=== PATIENT | male | born 1950 | race Caucasian/White ===

== ENCOUNTER 2016-11-29 13:05 | Day surgery (SDC) | payer OTHER, BC ==
[~2016-11-29] VITALS: Ht 162.6 cm; Wt 88.2 kg
[~2016-11-29 13:05] MED LIST: ASPIR-LOW81 MG PO; ASPIRIN81 M2 PO; ATENOLOL50 MG PO; BENICAR HCT 201 EACH PO; BENICAR HCT1 TABLET PO; CIPRO500 MG PO; CLINORIL200 MG; COQ-1030 MG PO; COUMADIN5 MG PO; DEPAKOTE ER250 MG PO; DEPAKOTE250 MG PO; Ecotrin PO; FLOMAX0.4 MG PO; Flomax PO; GLUCOPHAGE500 MG PO; INDOCIN50 MG PO; Indocin PO; LAMISIL250 MG PO; LIPITOR40 MG PO; Lovenox SC; NIFEDIPINE ER60 MG PO; OXYCODONE HCL5 MG PO; Percocet 5/325,Endoc PO; RESTASIS 01 DROP/0.4 BOTH EYES; Rocephin IV; TAMSULOSIN HCL0.4 MG; ZYVOX600 MG PO; Zocor PO; predniSONE PO
[2016-11-29] MEDS ORDERED: SPIRONOLACTONE25 MG PO (13:45)
[2016-11-29 14:49] VITALS: BP 116/71
[2016-11-29 22:57] VITALS: BP 127/74
[2016-11-30 04:07] VITALS: BP 129/70
[2016-11-30 08:21] VITALS: BP 129/72
[2016-11-30] MEDS ORDERED: LOVENOX40 MG/0.4 SC (08:28)
[2016-11-30] MEDS ORDERED: ENDOCET 5-3251 EACH PO (08:28)
[2016-11-30 11:30] VITALS: BP 130/72
== END 2016-11-30 11:55 | disposition home or self-care (01) ==
LOC: SDC 13:05 → 2SOUTH 19:47 → 3EAST 19:47 → 2SOUTH 19:47 → 3EAST 21:56
PROC: 0KQR0ZZ Repair Left Upper Leg Muscle, Open Approach (ICD-10-PCS; principal; 2016-11-29)
DX: S76.112A Strain of left quadriceps muscle, fascia and tendon, initial encounter (principal); I10 Essential (primary) hypertension; E11.9 Type 2 diabetes mellitus without complications; E78.5 Hyperlipidemia, unspecified; Z96.651 Presence of right artificial knee joint
CPT/HCPCS: G0378; G8978 GP CJ; G8979 CJ; G8980 CJ; G8987 GO CI; G8988 CI; G8989 GO CI; J0690; J1100; J1170; J1650; J2405; J3010; J7030